=== PATIENT | female | born 1965 | race Caucasian/White ===

== ENCOUNTER → 2021-02-05 | Outpatient (CLI) | payer OTHER ==
[~2021-02-05] VITALS: Ht 165.1 cm; Wt 89.4 kg
[~2021-02-05] MED LIST: BLACK ELDERBER1 EACH PO; COLACE100 MG PO; FLONASE 0.05%50 MCG NARES; HYDROCHLOROTHIA25 M1 PO; LISINOPRIL5 MG PO; OMEPRAZOLE 20 M20 M1 PO; PROAIR HFA8.5 GM INH; SINGULAIR 10 MG10 M1 PO; SYNTHROID125 MC1 PO; VITAMIN C500 M1 PO; VITAMIN D31250 MC1 PO; XYZAL5 MG PO
--- NOTE | 2021-02-10 12:50 | P ---
[facility] [place] [address] PROCEDURE REPORT Name: HE AIKEN Room #: REG PHILLIPGene Mc#: [id number] Admission: 02/05/21 Attend Phys: Lex Salguero Discharge: Date of : 65 Report #: [id number] THIS REPORT FOR: cc: FAM - Family physician unknown Physician not on staff Lex Callaway MD ~ DATE OF SERVICE: 02/05/2021 PROCEDURE PERFORMED: Upper endoscopy. 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 Therefore, the patient was given DDAVP prior to her procedures and platelets have been typed and crossed in case of need for bleeding today. The patient is scheduled for an EGD and colonoscopy. Her last upper endoscopy in 2015 showed grade A erosive esophagitis, otherwise normal. She has been taking daily PPI since then. Denies any heartburn or dysphagia. She has noticed recent diarrhea and change in stools. Plan is for EGD and colonoscopy. DESCRIPTION OF PROCEDURE: The risks and benefits of the procedure were explained to the patient, those risks including but not limited to bleeding, perforation and the risk of sedation. She understood these risks and gave informed consent. Sedation was given using propofol per anesthesia. Next, using a standard Olympus upper endoscope, the scope was placed in the patient's mouth and advanced under direct vision through the esophagus, stomach and into the second portion of the duodenum. Esophagus was normal throughout. The GE junction was normal. Overall, the gastric mucosa was normal. The pylorus was normal and patent. The duodenal bulb, first and second portion were all normal. The scope was then withdrawn and the procedure terminated. The patient tolerated the procedure well. IMPRESSION: Normal upper endoscopy. RECOMMENDATIONS: We will proceed with colonoscopy next today. Thank you for allowing me to participate in her care. <ELECTRONICALLY SIGNED> By: Lex Callaway MD 02/10/21 1250 [id number] [id number] Lex Callaway MD /nt
--- NOTE | 2021-02-10 12:50 | P ---
[facility] [place] [address] [place] [address] PROCEDURE REPORT Name: HE AIKEN Room #: REG PHILLIPGene Mc#: [id number] Admission: 02/05/21 Attend Phys: Lex Salguero Discharge: Date of : 65 Report #: [id number] THIS REPORT FOR: cc: FAM - Family physician unknown Physician not on staff Lex Callaway MD ~ DATE OF SERVICE: 02/05/2021 PROCEDURE PERFORMED: Colonoscopy with biopsies. 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 Last colonoscopy was performed by myself on 07/03/2016. At that time, colon was normal other than internal and external hemorrhoids, which are nonbleeding. She was seen in the office on 01/09/2021 with chronic loose stools, change in bowel habits. She denies any blood in her stools. Because of the increased risk for granulomatous colitis, plan is for repeat colonoscopy. Of note, the patient did receive DDAVP prior to the procedure and she does have platelets, which have been typed and crossed on hold in case of bleeding. DESCRIPTION OF PROCEDURE: The risks and benefits of the procedure were explained to the patient, those risks including but not limited to bleeding, perforation and the risk of sedation. She understood these risks and gave informed consent. Sedation was given using propofol per anesthesia. Next, a digital rectal exam was initially performed, which showed old external type hemorrhoids versus chronic inflammatory changes, which can be seen in the setting of Crohn's disease. Next, using a standard Olympus colonoscope, the scope was placed in the patient's anus and advanced under direct vision to the cecum. The overall prep was excellent. The cecum and ileocecal valve were normal in appearance. The terminal ileum was difficult to intubate, but was normal in appearance at the very distal portion. The ascending and transverse colon were normal. A colitis was noted, which was [id number] in the descending colon. Biopsies were obtained. As the scope was withdrawn, the colitis became much more severe with multiple deep linear ulcerations noted in the sigmoid colon and the rectum. Again, biopsies were obtained in the sigmoid colon as well as in the rectum. The appearance suggests the possibility of Crohn's disease. There was no active bleeding; however, the tissue was friable. At this point, the scope was then withdrawn and the procedure terminated. The patient tolerated the procedure well. IMPRESSION: 1. Severe colitis involving linear ulcerations in the sigmoid colon and rectum, suspect possible Crohn's disease, although ulcerative colitis is also a consideration. 2. Mild colitis in the descending colon. [address] [address] PROCEDURE REPORT Name: HE AIKEN Room #: REG CORDELL Mc#: [id number] Admission: 02/05/21 Attend Phys: Lex Salguero Discharge: Date of : 65 Report #: [id number] 3. Chronic inflammatory changes in the perianal area. RECOMMENDATIONS: 1. Await biopsy results. 2. We will discuss treatment options once biopsy results have been obtained. 3. We will discuss transfusing platelets at this time due to the friability of her colitis, although there is no active bleeding currently. Thank you for allowing me to participate in her care. <ELECTRONICALLY SIGNED> By: Lex Callaway MD 02/10/21 1250 1205 1337 Lex Callaway MD /nt
--- NOTE | 2021-02-11 12:07 | PATH ---
[facility] [place] [address] PATHOLOGY RPT PROCEDURE Name: HE AIKEN Room #: REG CORDELL M.Everette.#: [id number] Admission: 02/05/21 Date of : 65 Discharge: Report #: [id number] Path Case #: [id number] [facility] Accession Number: [id number] . 01 Material submitted: . PART A: colon - BIOPSY DESCENDING COLON. Modifiers: descending PART B: sigmoid colon - BIOPSY SIGMOID COLON PART C: rectum - BIOPSY RECTUM . 01 Clinical history: . RULE-OUT COLITIS DTS/EGD/COLONOSCOPY/CHANGE IN BOWEL HABITS . 02 Diagnosis: A. Large intestine, descending colon R/O colitis, endoscopic biopsy: - Mild acute colitis with a few poorly formed granulomata, see comment. - Negative for microscopic colitis. - Negative for dysplasia or malignancy. . B. Large intestine, sigmoid colon R/O colitis, endoscopic biopsy: - Mild chronic and active colitis with subtle architectural abnormalities and rare poorly formed granulomata. - Negative for microscopic colitis. - Negative for dysplasia or malignancy. . C. Large intestine, rectum, endoscopic biopsy: - Moderate to marked acute colitis with surface ulceration, crypt abscess formation as well as architectural abnormalities. - Negative for microscopic colitis. - Negative for dysplasia or malignancy. (IUV:purnima; 02/10/2021) S 02/10/2021 1657 Local . 02 Comment: Examination shows an increasing gradient of acute inflammation within the obtained samples of the "descending colon", "sigmoid colon", and "rectum". Poorly formed granulomata are identified in addition to cryptitis within the descending colon as well as the sigmoid colon biopsy tissue. In addition, the rectum biopsy tissue shows crypt abscess formation as well as architectural abnormalities and surface ulceration. Findings are suggestive of inflammatory bowel disease (ulcerative colitis as well as Crohn's disease). Please note, diverticulitis as well as drug induced colitis entire the differential. Please correlate clinically and followup as indicated. (IUV:purnima; 02/10/2021) . 02 Electronically signed: . [address] [address] PATHOLOGY RPT PROCEDURE Name: HE AIKEN Room #: REG CORDELL Mc#: [id number] Admission: 02/05/21 Date of : 65 Discharge: Report #: [id number] Path Case #: [id number] Jami Caruso MD, Pathologist NPI- [id number] . 01 Gross description: . A. The specimen is received in formalin, labeled "He Dezan, biopsy descending colon". Received are four segments of pale contreras tissue ranging in size from 0.2-0.7 cm in maximum dimensions. The specimen is submitted entirely in cassette A1. . B. The specimen is received in formalin, labeled "He Dezan, biopsy sigmoid colon". Received are four segments of pale contreras tissue ranging in size from 0.2-0.4 cm in maximum dimensions. The specimen is submitted entirely in cassette B1. . C. The specimen is received in formalin, labeled "He Dezan, biopsy rectum". Received are two segments of pale contreras tissue measuring 0.5 and 0.6 cm in maximum dimensions. The specimen is submitted entirely in cassette C1. (CAA; 02/09/2021) QAC/QAC 02/09/2021 1711 Local . 02 Pathologist provided ICD-10: K52.9, K63.3 . 02 CPT . 116215, 434697, 026600 Specimen Comment: A courtesy copy of this report has been sent to [phone] Specimen Comment: Report sent to Performed at: [address], [place], [place] [id number] MD Mike Mcintyre MD Phone: [phone] Performed at: [address] [id number] MD Jami Caruso MD Phone: [phone]
== END | disposition home or self-care (01) ==
LOC: GI 06:54
PROVIDERS: ATTEND Specialist
DX: R19.4 Change in bowel habit (principal); K52.9 Noninfective gastroenteritis and colitis, unspecified; K63.3 Ulcer of intestine; K62.89 Other specified diseases of anus and rectum; I10 Essential (primary) hypertension; E03.9 Hypothyroidism, unspecified; K21.9 Gastro-esophageal reflux disease without esophagitis; Z98.890 Other specified postprocedural states; Z79.899 Other long term (current) drug therapy; Z90.49 Acquired absence of other specified parts of digestive tract; Z88.2 Allergy status to sulfonamides
CPT/HCPCS: 62110; 62900; 65090